=== PATIENT | male | born 1970 | race American Indian/Alaskan Native ===

== ENCOUNTER 2018-04-16 23:43 | Inpatient (IN) | payer OTHER ==
[2018-04-17] MEDS ORDERED: ZOFRAN IM ONE (00:35)
[2018-04-17 00:57] LABS: Basophils # (Auto) 0.1 K/mm3 (0.0-0.1); Basophils % (Auto) 0.6 % (0.0-1.8); Eosinophils % (Auto) 0.1 % (0.0-4.3); Hematocrit 46.9 % (35.5-45.6); Hemoglobin 15.7 gm/dl (11.8-15.2); Lymphocytes # (Auto) 2.7 K/mm3 (1.2-5.4); Lymphocytes % (Auto) 15.8 % (13.4-35.0); Mean Corpuscular HGB Conc 33 % (32-34); Mean Corpuscular Hemoglobin 27 pg (28-32); Mean Corpuscular Volume 82 fl (84-94); Monocytes # (Auto) 1.7 K/mm3 (0.0-0.8); Monocytes % (Auto) 9.8 % (0.0-7.3); Platelet Count 289 K/mm3 (140-440); Red Blood Count 5.72 M/mm3 (3.65-5.03)
[2018-04-17 01:12] LABS: Calcium 9.7 mg/dL (8.4-10.2)
--- NOTE | 2018-04-17 01:29 | XRay Report ---
FINAL REPORT EXAM: XR CHEST ROUTINE 2V HISTORY: cough TECHNIQUE: PA and lateral views of the chest were submitted. FINDINGS: The heart size and mediastinum appear normal. The lungs are clear. Pleural fluid is not seen. The skeletal structures do not show any acute changes. IMPRESSION: No active chest disease.
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
[2018-04-17] MEDS ORDERED: NACL 0.9% 1000 ML 1,000 ML IV ONE (07:01)
[2018-04-17] MEDS ORDERED: LEVAQUIN 750MG/150ML 750 MG/150 ML BAG IV ONE (07:01)
[2018-04-17 07:43] LABS: Alanine Aminotransferase 15 units/L (7-56); Albumin 4.2 g/dL (3.9-5)
[2018-04-17 07:45] LABS: Bilirubin,Direct < 0.2 mg/dL (0-0.2)
[2018-04-17 07:54] LABS: INR 1.02 (0.87-1.13); Partial Thromboplastin Time 33.7 Sec. (24.2-36.6)
[2018-04-17] MEDS ORDERED: PROAIR IH PRN (09:06)
--- NOTE | 2018-04-17 09:08 | Progress Note ---
Assessment and Plan Assessment and plan: --Acute bronchitis; Oxygen titrated to O2 sats more than 90%, bronchodilators as needed Antibiotics, cough medicine, antihistamine --Leukocytosis; probably secondary to acute bronchitis, pneumonitis Continue current management and closely monitor Follow cultures --Ongoing tobacco use; smoking cessation counseling Nicotine patch as needed --Obesity; BMI 52.1, counseling weight reduction --DVT prophylaxis; Lovenox Closely monitor the patient and adjust management as needed Possible discharge in 1-2 days if stable Hospitalist Physical - Constitutional Vitals: Temp Pulse Resp BP Pulse Ox 97.7 F 80 22 95/67 99 04/17/18 03:59 04/17/18 08:00 04/17/18 08:00 04/17/18 08:00 04/17/18 08:00 Results - Labs CBC & Chem 7: 04/17/18 00:38 08 00:38 Labs: Laboratory Last Values WBC 17.1 K/mm3 (4.5-11.0) H 04/17/18 00:38 RBC 5.72 M/mm3 (3.65-5.03) H 04/17/18 00:38 Hgb 15.7 gm/dl (11.8-15.2) H 04/17/18 00:38 Hct 46.9 % (35.5-45.6) H 04/17/18 00:38 MCV 82 fl (84-94) L 04/17/18 00:38 MCH 27 pg (28-32) L 04/17/18 00:38 MCHC 33 % (32-34) 04/17/18 00:38 RDW 14.0 % (13.2-15.2) 04/17/18 00:38 Plt Count 289 K/mm3 (140-440) 04/17/18 00:38 Lymph % (Auto) 15.8 % (13.4-35.0) 04/17/18 00:38 [place] % (Auto) 9.8 % (0.0-7.3) H 04/17/18 00:38 Eos % (Auto) 0.1 % (0.0-4.3) 04/17/18 00:38 Baso % (Auto) 0.6 % (0.0-1.8) 04/17/18 00:38 Lymph # 2.7 K/mm3 (1.2-5.4) 04/17/18 00:38 [place] # 1.7 K/mm3 (0.0-0.8) H 04/17/18 00:38 Eos # 0.0 K/mm3 (0.0-0.4) 04/17/18 00:38 Baso # 0.1 K/mm3 (0.0-0.1) 04/17/18 00:38 Seg Neutrophils % 73.7 % (40.0-70.0) H 04/17/18 00:38 Seg Neutrophils # 12.6 K/mm3 (1.8-7.7) H 04/17/18 00:38 PT 13.9 Sec. (12.2-14.9) 04/17/18 07:11 INR 1.02 (0.87-1.13) 04/17/18 07:11 APTT 33.7 Sec. (24.2-36.6) 04/17/18 07:11 Sodium 139 mmol/L (137-145) 04/17/18 00:38 Potassium 4.4 mmol/L (3.6-5.0) 04/17/18 00:38 Chloride 95.5 mmol/L (98-107) L 04/17/18 00:38 Carbon Dioxide 23 mmol/L (22-30) 04/17/18 00:38 Anion Gap 25 mmol/L 04/17/18 00:38 BUN 17 mg/dL (9-20) 04/17/18 00:38 Creatinine 3.5 mg/dL (0.8-1.5) H 04/17/18 00:38 Estimated GFR 23 ml/min 04/17/18 00:38 BUN/Creatinine Ratio 5 % 04/17/18 00:38 Glucose 138 mg/dL (75-100) H 04/17/18 00:38 Calcium 9.7 mg/dL (8.4-10.2) 04/17/18 00:38 Total Bilirubin 0.40 mg/dL (0.1-1.2) 04/17/18 07:11 Direct Bilirubin < 0.2 mg/dL (0-0.2) 04/17/18 07:11 AST 15 units/L (5-40) 04/17/18 07:11 ALT 15 units/L (7-56) 04/17/18 07:11 Alkaline Phosphatase 82 units/L (35-129) 04/17/18 07:11 Total Creatine Kinase 245 units/L (55-170) H 04/17/18 07:11 Troponin T < 0.010 ng/mL (0.00-0.029) 04/17/18 07:11 NT-Pro-B Natriuret Pep 26.26 pg/mL (0-450) 04/17/18 07:11 Total Protein 7.6 g/dL (6.3-8.2) 04/17/18 07:11 Albumin 4.2 g/dL (3.9-5) 04/17/18 07:11 Albumin/Globulin Ratio 1.2 % 04/17/18 07:11
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
[2018-04-17] MEDS ORDERED: PEPCID PO SCH (10:00)
--- NOTE | 2018-04-17 10:44 | Ultrasound Report ---
ULTRASOUND RENAL BILATERAL HISTORY: Acute renal insufficiency. TECHNIQUE: transabdominal ultrasound with color Doppler interrogation. FINDINGS: The right kidney measures 11.7 x 4.6 x 5.3cm. Right renal cortex: 1.6cm. The left kidney measures 12.6 x 5.4 x 6.5cm. Left renal cortex: 1.0cm. Scans of the kidneys show normal renal contours. There is normal central calyceal clustering and good preservation of the cortical thickness. There is no evidence of mass or hydronephrosis. The views of the bladder and the region of the ureters appear normal. IMPRESSION: Unremarkable renal ultrasound.
[2018-04-17] MEDS ORDERED: PROVENTIL IH PRN (10:46)
[2018-04-17] MEDS ORDERED: PEPCID ONE (10:57)
[2018-04-17] MEDS: NACL 0.9% 1000 ML 1,000 ML IV SCH (14:30)
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
[2018-04-17] MEDS: HABITROL TD SCH (17:07)
[2018-04-17 18:39] LABS: Bilirubin,Urine NEG (Negative); Blood,Urine NEG (Negative); Color,Urine Yellow (Yellow); Mucus,Urine FEW /HPF; Protein,Urine <15 mg/dL mg/dL (Negative); Urobilinogen,Urine < 2.0 mg/dL (<2.0)
[2018-04-17 18:40] LABS: Creatinine,Urine 165.5 mg/dL (0.1-20.0)
[2018-04-17] MEDS: PEPCID PO SCH (21:13)
[2018-04-18] MEDS: NACL 0.9% 1000 ML 1,000 ML IV SCH (00:12)
[2018-04-18 06:13] LABS: Hemoglobin 13.1 gm/dl (11.8-15.2); Mean Corpuscular HGB Conc 33 % (32-34); Mean Corpuscular Hemoglobin 27 pg (28-32); Mean Corpuscular Volume 82 fl (84-94); Platelet Count 209 K/mm3 (140-440); Red Blood Count 4.87 M/mm3 (3.65-5.03); Red Cell Distribution Width 13.4 % (13.2-15.2)
[2018-04-18 06:32] LABS: BUN/Creatinine Ratio 16; Blood Urea Nitrogen 19 mg/dL (9-20); Calcium 8.6 mg/dL (8.4-10.2); Hemolysis Index 11
--- NOTE | 2018-04-18 07:17 | Progress Note ---
Assessment and Plan 1. Acute kidney injury: Likely hemodynamic / Vasomotor JULIAN in the setting of volume depletion. Renal US was negative for Hydronephrosis. Renal function has improved. 2. Acute bronchitis. Follow up with me in 1-2 weeks. Subjective Date of service: 04/18/18 Interval history: Patient is feeling much better. Objective - Vital Signs Vital signs: Vital Signs - 12hr 04/17/18 04/17/18 04/18/18 21:09 23:55 00:33 Temperature 98.3 F 98.5 F Pulse Rate 67 69 74 Respiratory 18 16 Rate Blood Pressure 91/63 101/55 O2 Sat by Pulse 97 90 96 Oximetry 04/18/18 06:06 Temperature 98.8 F Pulse Rate 64 Respiratory 18 Rate Blood Pressure 104/60 O2 Sat by Pulse 95 Oximetry - General Appearance General appearance: well-developed, well-nourished, appears stated age, other ( not in distress) EENT: ATNC, PERRL, mucous membranes moist, hearing intact, vision intact Neck: supple Respiratory: Present: Clear to Ascultation Cardiology: regular, S1S2, no murmurs Gastrointestinal: normoactive bowel sounds, no tenderness Integumentary: no rash, warm and dry Neurologic: no focal deficit, no asterixis, alert and oriented x3 Musculoskeletal: other (no edema) Psychiatric: cooperative - Lab 04/18/18 05:39 04/18/18 05:39 Most recent lab results Calcium 8.6 mg/dL (8.4-10.2) 04/18/18 05:39 Phosphorus 2.60 mg/dL (2.5-4.5) 04/18/18 05:39 Magnesium 2.30 mg/dL (1.7-2.3) 04/18/18 05:39 Urine Creatinine 165.5 mg/dL (0.1-20.0) H 04/17/18 18:15 Urine Sodium 38 mmol/L 04/17/18 18:15
[2018-04-18] MEDS ORDERED: PERCOCET 5/325 PO PRN (08:21)
[2018-04-18] MEDS: PEPCID PO SCH (09:45)
[2018-04-18] MEDS: HABITROL TD SCH (09:45)
--- NOTE | 2018-04-18 11:54 | Discharge Summary ---
Providers - Providers Date of Admission: 04/17/18 09:05 Date of discharge: 04/18/18 Attending physician: NORIS LIAO 04/17/18 09:13 Consult to Physician [CONS] Routine Comment: Consulting Provider: LEAH CARL Physician Instructions: Reason For Exam: JULIAN Primary care physician: EVALUATION SPECIALIST Hospitalization Condition: Stable Disposition: DC-01 TO HOME OR SELFCARE Time spent for discharge: 32 min Core Measure Documentation - Palliative Care Palliative Care/ Comfort Measures: Not Applicable - Core Measures Any of the following diagnoses?: none Exam - Constitutional Vitals: Temp Pulse Resp BP Pulse Ox 98.8 F 64 18 104/60 95 04/18/18 06:06 04/18/18 06:06 04/18/18 06:06 04/18/18 06:06 04/18/18 08:35 General appearance: Present: no acute distress, well-nourished, obese - EENT Eyes: Present: PERRL, EOM intact - Neck Neck: Present: supple, normal ROM - Respiratory Respiratory effort: normal Respiratory: bilateral: diminished, negative: rales, rhonchi, wheezing - Cardiovascular Rhythm: regular Heart Sounds: Present: S1 & S2 - Extremities Extremities: no ischemia, No edema - Abdominal General gastrointestinal: Present: soft, non-tender, non-distended, normal bowel sounds - Integumentary Integumentary: Present: clear, warm - Musculoskeletal Musculoskeletal: strength equal bilaterally - Psychiatric Psychiatric: appropriate mood/affect, cooperative - Neurologic Neurologic: CNII-XII intact, moves all extremities Plan Activity: no restrictions Diet: regular Special Instructions: smoking cessation Additional Instructions: Smoking cessation advised. Advised to quit recreational drug use Follow up with: DAYO CARSON MD [Primary Care Provider] - 3-5 Days LEAH CARL MD [Staff Physician] - 7 Days Prescriptions: guaiFENesin DM [Guaifenesin Dm Syrup] 10 ml PO Q4H PRN 10 Days oral.liqd PRN Reason: Cough Nicotine [Habitrol] 21 mg TD QDAY #30 patch oxyCODONE /ACETAMINOPHEN [Percocet 5/325 mg] 1 tab PO DAILY PRN #5 tablet PRN Reason: Pain, Moderate (4-6)
[2018-04-18 12:12] VITALS: BP 117/62
[2018-04-18] MEDS ORDERED: LEVAQUIN 500MG/100ML 500 MG/100 ML BAG IV SCH (13:00)
[2018-04-18] MEDS ORDERED: PEPCID PO SCH (22:00)
== END 2018-04-18 16:30 | disposition home or self-care (01) | DRG 202 ==
LOC: ED 23:43 → 3A 04-17 09:05
PROVIDERS: ADMIT Internal Medicine; ATTEND Internal Medicine
DX: J20.9 Acute bronchitis, unspecified (principal); N17.9 Acute kidney failure, unspecified; I95.9 Hypotension, unspecified; F10.10 Alcohol abuse, uncomplicated; Y90.0 Blood alcohol level of less than 20 mg/100 ml; F17.210 Nicotine dependence, cigarettes, uncomplicated; D72.829 Elevated white blood cell count, unspecified; E86.9 Volume depletion, unspecified; F12.90 Cannabis use, unspecified, uncomplicated; E66.9 Obesity, unspecified; Z71.6 Tobacco abuse counseling; Z82.49 Family history of ischemic heart disease and other diseases of the circulatory system; Z68.32 Body mass index [BMI] 32.0-32.9, adult; Z71.3 Dietary counseling and surveillance
CPT/HCPCS: 36415; 71046; 76770; 80048; 80074; 81001; 82550; 82570; 83735; 83880; 84100; 84300; 84484; 85025; 85027; 85610; 85730; 87040; 93005; 93010; 99406; J1956; J2405; J7030